=== PATIENT | male | born 1945 | race Caucasian/White ===

== ENCOUNTER → 2017-01-05 | Outpatient (CLI) | payer OTHER, MEDICARE ==
[2017-01-05 13:32] LABS: BASE EXCESS 4.2 mEq/L (-3 to +3); BICARBONATE 28.4 mEq/L (22-26); PCO2 40 mm Hg (35-45); PO2 61 mm Hg (80-100); pH 7.46 (7.35-7.45)
[2017-01-05 13:34] LABS: COMMENTS - BLOOD GASES A+C+; DEVICE RA; SITE RR; TOTAL RESP RATE 16 resp/min
== END | disposition home or self-care (01) ==
LOC: RES 13:05
PROVIDERS: Thoracic Surgery (Cardiothoracic Vascular Surgery)
DX: C34.90 Malignant neoplasm of unspecified part of unspecified bronchus or lung (principal)
CPT/HCPCS: 36600; 82803

== ENCOUNTER 2017-02-04 08:02 | Day surgery (SDC) | payer OTHER, MEDICARE ==
[~2017-02-04] VITALS: Ht 180.3 cm; Wt 93.0 kg
[~2017-02-04 08:02] MED LIST: AZELASTINE137 MCG/0. BOTH NARES; B-121000 MC2 PO; CARVEDILOL25 MG PO; FLONASE16 G1 BOTH NARES; HUMALOG100 UNIT/2 SC; LANTUS 3 M100 UNITS1 SC; LASIX20 MG PO; LISINOPRIL40 MG PO; MAGNESIUM OXID200 MG PO; METFORMIN HCL500 MG PO; METOPROLOL TART25 MG PO; MULTIVITAMIN1 EAC2 PO; NORVASC5 MG PO; OMEPRAZOLE20 M2 PO; PRANDIN2 MG PO; SPIRIVA18 MCG IH; SYMBICORT60 INHALAT IH; ZOCOR80 MG PO
[2017-02-04 08:38] VITALS: BP 131/75
[2017-02-04 08:55] LABS: HEMATOCRIT 41.9 % (38.0-50.0); MCH 32.6 PG (29.0-34.0); MCHC 33.7 G/DL (30.0-36.0); MEAN PLAT.VOLUME 9.7 uM^3 (9.0-12.4); PLATELET COUNT 215 K/uL (156-360); RBC DIS.WIDTH-CV 12.8 % (11.8-14.6); RBC DIS.WIDTH-SD 46.1 % (39-53); RED BLOOD COUNT 4.32 M/uL (4.00-5.50); WHITE BLOOD COUNT 8.7 K/uL (4.1-10.2)
[2017-02-04 09:07] LABS: PROTHROMBIN TIME 11.5 SEC (10.2-12.9)
[2017-02-04 09:19] LABS: CHLORIDE 101 mEq/L (99-109); POTASSIUM 4.4 mEq/L (3.7-5.4); SODIUM 134 mEq/L (136-147)
[2017-02-04 09:22] LABS: ANION GAP 5 MEQ/L (2-14)
[2017-02-04 09:23] LABS: TOTAL BILIRUBIN 0.8 mg/dL (0.0-1.0)
[2017-02-04 09:25] LABS: ALKALINE PHOSPHATASE 68 IU/L (3-129); GFR ESTIMATE (CALCULATED) > 59 mL/min/
[2017-02-04 09:26] LABS: UREA NITROGEN (BUN) 13 mg/dL (9-23)
[2017-02-04 10:06] LABS: GLUCOSE 159 mg/dL (70-99)
[2017-02-04 13:42] LABS: POINT-OF-CARE METER ID UU13113675; POINT-OF-CARE USER ID LABLCH83
[2017-02-04] MEDS ORDERED: HYDROCODON-ACE1 EAC7 PO (14:04)
[2017-02-04] MEDS ORDERED: COLACE100 MG PO (14:04)
[2017-02-04 14:33] VITALS: BP 149/85
[2017-02-04 15:42] VITALS: BP 153/79
== END 2017-02-04 15:53 | disposition home or self-care (01) ==
LOC: SDC 08:02
PROVIDERS: Thoracic Surgery (Cardiothoracic Vascular Surgery)
PROC: 07B74ZX Excision of Thorax Lymphatic, Percutaneous Endoscopic Approach, Diagnostic (ICD-10-PCS; principal; 2017-02-04)
DX: C34.11 Malignant neoplasm of upper lobe, right bronchus or lung (principal); J44.9 Chronic obstructive pulmonary disease, unspecified; G47.33 Obstructive sleep apnea (adult) (pediatric); Z87.891 Personal history of nicotine dependence; E11.9 Type 2 diabetes mellitus without complications; I10 Essential (primary) hypertension
CPT/HCPCS: 80053; 82948; 85027; 85610; 86900; 86901; 88305; 94640; 99202; J0330; J0690; J2250; J2405; J2710; J3010

== ENCOUNTER 2017-03-09 22:13 | Inpatient (IN) | payer OTHER, MEDICARE ==
[~2017-03-09] VITALS: Ht 182.9 cm; Wt 91.1 kg
[~2017-03-09 22:13] MED LIST changes: +COLACE100 MG PO; +HYDROCODON-ACE1 EAC7 PO; +[UNRECOGNIZED DRUG - OTHER] NS
[2017-03-10] VITALS (7 sets, daily range): BP systolic 118–151; BP diastolic 61–88
[2017-03-10 06:09] LABS: HEMATOCRIT 41.9 % (38.0-50.0); MCH 32.8 PG (29.0-34.0); MCHC 33.4 G/DL (30.0-36.0); MCV 98.1 FL (86-99); RBC DIS.WIDTH-CV 13.1 % (11.8-14.6); RBC DIS.WIDTH-SD 47.2 % (39-53); RED BLOOD COUNT 4.27 M/uL (4.00-5.50); WHITE BLOOD COUNT 7.1 K/uL (4.1-10.2)
[2017-03-10 06:15] LABS: PTT 32.6 SEC (25-37)
[2017-03-10 06:27] LABS: ANION GAP 5 MEQ/L (2-14); CHLORIDE 98 MEQ/L (99-109); POTASSIUM 4.2 MEQ/L (3.7-5.4); SAMPLE HEMOLYSIS CHECK 0; SAMPLE ICTERIC CHECK 0; SAMPLE LIPEMIA CHECK 0; SODIUM 134 MEQ/L (136-147); TOTAL BILIRUBIN 0.8 MG/DL (0.0-1.0)
[2017-03-10 06:32] LABS: ALKALINE PHOSPHATASE 67 IU/L (3-129); GFR ESTIMATE (CALCULATED) > 59 mL/min/; GLUCOSE 101 mg/dL (70-99); UREA NITROGEN (BUN) 13 mg/dL (9-23)
[2017-03-10 06:58] LABS: MEAN PLAT.VOLUME 9.9 uM^3 (9.0-12.4); PLAT.SUFFICIENCY ADEQUATE; PLATELET COUNT 206 K/uL (156-360)
[2017-03-10 12:59] LABS: POINT-OF-CARE METER ID UU13113675
[2017-03-10 16:38] LABS: METH RESISTANT S AUREUS PCR NEGATIVE (NEGATIVE)
[2017-03-10 16:39] LABS: PROBE CHECK PASS; SPECIMEN PROCESSING CONTROL PASS
[2017-03-10 19:47] LABS: POINT-OF-CARE METER ID UU14174217
[2017-03-11] VITALS (10 sets, daily range): BP systolic 91–162; BP diastolic 47–77
[2017-03-11 07:53] LABS: HEMATOCRIT 34.2 % (38.0-50.0); MCHC 33.6 G/DL (30.0-36.0); MCV 98.3 FL (86-99); MEAN PLAT.VOLUME 10.4 uM^3 (9.0-12.4); PLATELET COUNT 185 K/uL (156-360); RBC DIS.WIDTH-CV 13.1 % (11.8-14.6); RBC DIS.WIDTH-SD 46.5 % (39-53); RED BLOOD COUNT 3.48 M/uL (4.00-5.50); WHITE BLOOD COUNT 9.5 K/uL (4.1-10.2)
[2017-03-11 08:09] LABS: ANION GAP 5 MEQ/L (2-14); CHLORIDE 96 MEQ/L (99-109); GFR ESTIMATE (CALCULATED) > 59 mL/min/; POTASSIUM 4.8 MEQ/L (3.7-5.4); SAMPLE HEMOLYSIS CHECK 0; SAMPLE ICTERIC CHECK 0; SAMPLE LIPEMIA CHECK 0; SODIUM 130 MEQ/L (136-147); UREA NITROGEN (BUN) 16 mg/dL (9-23)
[2017-03-11 08:12] LABS: GLUCOSE 202 mg/dL (70-99)
[2017-03-11 12:28] LABS: POINT-OF-CARE METER ID UU14162636
[2017-03-11 18:31] LABS: POINT-OF-CARE METER ID UU13113731
[2017-03-11 21:30] LABS: POINT-OF-CARE METER ID UU13113803
[2017-03-12] VITALS (15 sets, daily range): BP systolic 101–148; BP diastolic 50–70
[2017-03-12 05:31] LABS: HEMATOCRIT 29.6 % (38.0-50.0); MCH 32.9 PG (29.0-34.0); MCHC 33.4 G/DL (30.0-36.0); MCV 98.3 FL (86-99); MEAN PLAT.VOLUME 10.8 uM^3 (9.0-12.4); PLATELET COUNT 158 K/uL (156-360); RBC DIS.WIDTH-CV 13.2 % (11.8-14.6); RBC DIS.WIDTH-SD 47.3 % (39-53); RED BLOOD COUNT 3.01 M/uL (4.00-5.50)
[2017-03-12 05:55] LABS: ANION GAP 8 MEQ/L (2-14); CHLORIDE 97 MEQ/L (99-109); GFR ESTIMATE (CALCULATED) > 59 mL/min/; GLUCOSE 163 mg/dL (70-99); POTASSIUM 4.3 MEQ/L (3.7-5.4); SAMPLE HEMOLYSIS CHECK 0; SAMPLE ICTERIC CHECK 0; SAMPLE LIPEMIA CHECK 0; SODIUM 131 MEQ/L (136-147); UREA NITROGEN (BUN) 20 mg/dL (9-23)
[2017-03-12 11:43] LABS: POINT-OF-CARE METER ID UU13113748
[2017-03-12 16:22] LABS: POINT-OF-CARE METER ID UU13113748
[2017-03-12 21:01] LABS: POINT-OF-CARE METER ID UU13113781
[2017-03-13 04:14] VITALS: BP 139/65
[2017-03-13 04:49] LABS: HEMATOCRIT 30.5 % (38.0-50.0); MCH 32.8 PG (29.0-34.0); MCHC 33.4 G/DL (30.0-36.0); MCV 98.1 FL (86-99); MEAN PLAT.VOLUME 9.8 uM^3 (9.0-12.4); PLATELET COUNT 174 K/uL (156-360); RED BLOOD COUNT 3.11 M/uL (4.00-5.50); WHITE BLOOD COUNT 9.1 K/uL (4.1-10.2)
[2017-03-13 05:00] LABS: CHLORIDE 98 mEq/L (99-109); POTASSIUM 4.3 mEq/L (3.7-5.4); SODIUM 132 mEq/L (136-147)
[2017-03-13 05:02] LABS: GLUCOSE 150 mg/dL (70-99)
[2017-03-13 05:03] LABS: ANION GAP 5 MEQ/L (2-14)
[2017-03-13 05:06] LABS: GFR ESTIMATE (CALCULATED) > 59 mL/min/; UREA NITROGEN (BUN) 13 mg/dL (9-23)
[2017-03-13 08:07] LABS: POINT-OF-CARE METER ID UU13113781
[2017-03-13 08:50] VITALS: BP 146/67
[2017-03-13 11:17] VITALS: BP 146/65
[2017-03-13 11:38] LABS: POINT-OF-CARE METER ID UU13113781
[2017-03-13 16:00] VITALS: BP 137/69
[2017-03-13 17:01] LABS: POINT-OF-CARE METER ID UU13113781
[2017-03-13 19:40] VITALS: BP 134/60
[2017-03-14 00:31] VITALS: BP 146/64
[2017-03-14 04:11] VITALS: BP 143/65
[2017-03-14 07:19] VITALS: BP 147/67
[2017-03-14 07:37] LABS: POINT-OF-CARE METER ID UU14174216
[2017-03-14 10:54] VITALS: BP 130/63
[2017-03-14 12:06] LABS: POINT-OF-CARE METER ID UU13113781
[2017-03-14 15:33] VITALS: BP 147/70
[2017-03-14 20:15] VITALS: BP 148/67
[2017-03-15] VITALS (7 sets, daily range): BP systolic 117–167; BP diastolic 59–79
[2017-03-15 08:05] LABS: POINT-OF-CARE METER ID UU14174216
[2017-03-15 11:37] LABS: POINT-OF-CARE METER ID UU14174216
[2017-03-15 16:19] LABS: POINT-OF-CARE METER ID UU14174216
[2017-03-15 21:22] LABS: POINT-OF-CARE METER ID UU14174216
[2017-03-16 03:50] VITALS: BP 174/82
[2017-03-16 07:27] LABS: POINT-OF-CARE METER ID UU14174216
[2017-03-16 07:46] VITALS: BP 177/78
[2017-03-16 11:17] LABS: POINT-OF-CARE METER ID UU14174216
[2017-03-16 11:25] VITALS: BP 177/77
[2017-03-16 16:00] VITALS: BP 169/75
[2017-03-16 16:44] LABS: POINT-OF-CARE METER ID UU13113698
[2017-03-16 20:35] VITALS: BP 167/81
[2017-03-16 21:20] LABS: POINT-OF-CARE METER ID UU13113698
[2017-03-16 23:35] VITALS: BP 173/81
[2017-03-17 05:37] VITALS: BP 187/86
[2017-03-17 08:26] VITALS: BP 165/98
[2017-03-17 12:43] VITALS: BP 147/68
[2017-03-17 16:30] VITALS: BP 168/75
[2017-03-17 19:45] VITALS: BP 180/80
[2017-03-17 21:10] LABS: POINT-OF-CARE METER ID UU13113781
[2017-03-18] VITALS (7 sets, daily range): BP systolic 131–182; BP diastolic 62–90
[2017-03-18 03:52] LABS: ADD MIUA? NO; BILIRUBIN NEGATIVE; BLOOD NEGATIVE; COLOR STRAW ((YELLOW)); GLUCOSE (STRIP) NEGATIVE; KETONES NEGATIVE; LEUKOCYTES NEGATIVE; NITRITE NEGATIVE; PROTEIN (STRIP) NEGATIVE; SPECIFIC GRAVITY 1.006 (1.000-1.030); UCUL ADDED? NO; UROBILINOGEN 0.2 MG/DL (0.2-1.0)
[2017-03-18 07:55] LABS: POINT-OF-CARE METER ID UU14174216
[2017-03-18 11:39] LABS: POINT-OF-CARE METER ID UU14174216
[2017-03-18 21:24] LABS: POINT-OF-CARE METER ID UU13113781
[2017-03-19 04:23] VITALS: BP 128/61
[2017-03-19 07:15] VITALS: BP 155/70
[2017-03-19 11:45] VITALS: BP 128/67
[2017-03-19 11:48] LABS: POINT-OF-CARE METER ID UU13113698
[2017-03-19 15:50] VITALS: BP 129/62
[2017-03-19 16:27] LABS: POINT-OF-CARE METER ID UU13113698
[2017-03-19 19:49] VITALS: BP 155/72
[2017-03-19 20:52] LABS: POINT-OF-CARE METER ID UU14174216
[2017-03-19 23:55] VITALS: BP 162/70
[2017-03-20 03:06] VITALS: BP 149/68
[2017-03-20 07:33] VITALS: BP 146/70
[2017-03-20 08:08] LABS: POINT-OF-CARE METER ID UU14174216
[2017-03-20 11:30] VITALS: BP 149/66
[2017-03-20 16:30] VITALS: BP 166/71
[2017-03-20 19:44] VITALS: BP 152/70
[2017-03-20 22:48] VITALS: BP 136/70
[2017-03-21 04:53] VITALS: BP 130/70
[2017-03-21 07:10] VITALS: BP 147/65
[2017-03-21 12:00] VITALS: BP 139/67
[2017-03-21 16:47] LABS: POINT-OF-CARE METER ID UU13113698
[2017-03-21 20:03] VITALS: BP 152/72
[2017-03-21 21:28] LABS: POINT-OF-CARE METER ID UU14174216
[2017-03-21 23:05] VITALS: BP 156/76
[2017-03-22 04:45] VITALS: BP 148/67
[2017-03-22 07:23] VITALS: BP 139/66
[2017-03-22 07:29] LABS: POINT-OF-CARE METER ID UU13113781
[2017-03-22] MEDS ORDERED: DIGOXIN250 MCG PO (08:36)
[2017-03-22] MEDS ORDERED: HYDROCODON-ACE1 EAC7 PO (08:36)
[2017-03-22] MEDS ORDERED: MUCINEX600 MG PO (08:36)
[2017-03-22] MEDS ORDERED: LOPRESSOR25 MG PO (08:36)
[2017-03-22 11:17] VITALS: BP 135/65
[2017-03-22 11:31] LABS: POINT-OF-CARE METER ID UU14174216
[2017-03-22 16:05] VITALS: BP 140/65
[2017-03-22 16:50] LABS: POINT-OF-CARE METER ID UU14174216
== END 2017-03-22 18:22 | disposition home health service (06) | DRG 164 ==
LOC: ENRESERV 22:13 → CANRESERV 22:13 → 2SOUTH 03-10 05:11 → 4WEST 03-10 05:11 → 2SOUTH 03-10 11:08 → ENRESERV 03-10 11:50 → CANRESERV 03-10 11:50 → ENRESERV 03-10 12:06 → 2SOUTH 03-10 12:37 → 4WEST 03-10 14:04 → ENRESERV 03-12 16:31 → 4EAST 03-12 18:15 → ENPENDDIS 03-22 12:08 → 4EAST 03-22 18:22
PROVIDERS: Thoracic Surgery (Cardiothoracic Vascular Surgery)
PROC: 0BBC0ZZ Excision of Right Upper Lung Lobe, Open Approach (ICD-10-PCS; principal; 2017-03-10)
DX: C34.11 Malignant neoplasm of upper lobe, right bronchus or lung (principal); J44.9 Chronic obstructive pulmonary disease, unspecified; E87.1 Hypo-osmolality and hyponatremia; E11.9 Type 2 diabetes mellitus without complications; J95.812 Postprocedural air leak; G47.33 Obstructive sleep apnea (adult) (pediatric); W19.XXXA Unspecified fall, initial encounter; I10 Essential (primary) hypertension; Y83.8 Other surgical procedures as the cause of abnormal reaction of the patient, or of later complication, without mention of misadventure at the time of the procedure; Y93.02 Activity, running; Z68.28 Body mass index [BMI] 28.0-28.9, adult; Z85.118 Personal history of other malignant neoplasm of bronchus and lung; Z86.79 Personal history of other diseases of the circulatory system; Z87.01 Personal history of pneumonia (recurrent); Z87.442 Personal history of urinary calculi; Z87.891 Personal history of nicotine dependence; Z83.3 Family history of diabetes mellitus; Z82.49 Family history of ischemic heart disease and other diseases of the circulatory system
CPT/HCPCS: 71010; 71020; 80048; 80053; 81003; 82948; 85027; 85610; 85730; 86850; 86900; 86901; 86920; 87641; 88305; 88309; 88341 TC; 88342 TC; 94010; 94640; 94640 76; 94660; 94760; 94799; 97530 GO; 99202; J0330; J0461; J0690; J1100; J1160; J1170; J1644; J1815; J1885; J2250; J2370; J2405; J2710; J3010; J7050; J7120; S0020